=== PATIENT | female | born 1995 | race Caucasian/White ===

== ENCOUNTER → 2019-10-01 09:43 | Outpatient (CLI) | payer OTHER, SELFPAY ==
[2019-10-03 03:36] LABS: COVID19 Sendout Not Detected (Not Detected)
== END ==
PROVIDERS: Visit Provider Physician Assistant
DX: Z01.818 Encounter for other preprocedural examination (principal)
CPT/HCPCS: 87635

== ENCOUNTER 2019-10-04 10:15 | Day surgery (SDC) | payer OTHER, SELFPAY ==
[2019-10-04] VITALS (7 sets, daily range): BP systolic 107–119; BP diastolic 57–80; PULSE 91–100; RESP 14–20; TEMP 36.1–36.8; O2SAT 98–100; BMI 21.9
--- NOTE | 2019-10-04 | PATH_ITS ---
[facility] Accession Number: [id number] . 01 Material submitted: . cecum - CECUM . 01 Clinical history: . A: CECUM, R/O IBD . 02 Diagnosis: Cecum, Biopsy: Mildly active colitis. Please see comment. Negative for granulomas, dysplasia and malignancy. MRV 10/06/2019 1009 Local . 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 There is mildly increased lymphocytes, plasma cells and eosinophils in the lamina propria. No obvious viral cytopathic effects or parasitic organisms are identified. The differential diagnosis includes infection, medication-related mucosal injury, trauma/prolapse and idiopathic inflammatory bowel disease. . 02 Electronically signed: . Neeru Best MD, Pathologist NPI- [id number] . 01 Gross description: . CECUM: Received in formalin are 2 fragment(s) of walker, soft tissue measuring 0.3 x 0.2 x 0.2 cm to 0.3 x 0.2 x 0.1 cm submitted entirely in 1 cassette(s) /QBJ 10/05/2019 0814 Local . 02 Pathologist provided ICD-10: R19.7 . 02 CPT . 667000 Performed at: [address] [facility] [address], [place], [place] [id number] MD Keith Aguilar MD Phone: [phone] Performed at: 02 [facility] [place] [address] [place], [place] [id number] MD Neeru Best MD Phone: [phone]
--- NOTE | 2019-10-04 10:06 | PM.HP.1 ---
History of Present Illness History of Present Illness Date Patient Seen: 10/04/19 Chief complaint: SDC Narrative: 24-year-old female who was seen at our office on 09/05/2019 due to a history of changes in bowel habit. Please refer to that note for further details. She has had no new alarm symptoms since that office visit. Meds Home Medications and Allergies Home Medications Medication Instructions Recorded Confirmed Type docusate sodium [Colace] 100 mg PO DAILY 10/04/19 10/04/19 History escitalopram oxalate 5 mg PO DAILY 10/04/19 10/04/19 History Allergies Allergy/AdvReac Type Severity Reaction Status Date / Time Sulfa (Sulfonamide Allergy Mild Rash Verified 10/04/19 10:58 Antibiotics) Exam Narrative Exam Narrative: General: Patient is well developed, not in apparent distress Cardiovascular: Regular rate and rhythm, no murmurs, rubs, or gallops; no evidence of edema; no palpable abdominal aortic aneurysm Gastrointestinal: Normoactive bowel sounds, soft, nontender, nondistended, no rebound tenderness, no hepatosplenomegaly, no evidence of hernia Assessment & Plan Assessment & Plan narrative: 24-year-old female who is here for further evaluation of changes in bowel habits by means of of colonoscopy Regarding the procedure(s), the risks and potential complications, benefits, and alternatives (including not doing the procedure) were discussed with the patient. The risks include but are not limited to bleeding, splenic injury, infection, perforation which may require surgical intervention, missed lesions, and adverse reactions to sedative medicines. After a question and answer period, the patient agreed to proceed with the procedure(s) and gives informed consent.
[2019-10-04] MEDS: SODIUM CHLORIDE 0.9% 1,000 ML 70 ML IV (10:59)
--- NOTE | 2019-10-04 11:40 | PM.OP.ENDO ---
Operative Date/Time/Diagnoses Date of procedure: 10/04/19 Procedure Notes Procedure in detail: Surgeon: Gen Nick MD Procedure: Colonoscopy with biopsy Preoperative diagnosis: Change in bowel habits Postoperative diagnosis: Cecal erythema around appendiceal orifice status post biopsy Medications: Conscious sedation using 10 mg IV of Midazolam and 200 mcg IV of Fentanyl Preanesthesia Assessment An H and P was performed/updated and the Px?s ASA class is 1. The procedure was discussed in detail with the patient. The potential risks and complications including infection, bleeding, missed lesions, perforation, need for surgery in case of perforation, prolonged hospital stay, and were explained. A brief question and answer period was allotted and once all questions were answered, informed consent was obtained. The patient was brought back to the procedure room and placed on standard monitoring. The patient?s vital signs were monitored continuously throughout the entire procedure. Prior to starting, a timeout was performed to confirm the patient?s identity, allergies, medications, and procedure. Procedure in detail The patient was placed in left lateral decubitus position and once adequate sedation was obtained a ZACH was performed. The digital rectal examination did not reveal any palpable lesions. The tip of the colonoscope was placed in the anal canal and advanced without difficulty all the way to the cecum which was identified by the appendiceal orifice and the ileocecal valve. The terminal ileum was intubated to a distance of 10 cm from the ileocecal valve. The mucosa appeared normal throughout the visualized terminal ileum. The colonoscope was brought back to the cecum and careful examination of all jett of the colon was performed with irrigation of any residual stool. Around the appendiceal orifice there was note of mild erythema. Biopsies were taken of this area with minimal bleeding The remainder of the colonic mucosa appeared normal with no evidence of polyps or other lesions. Retroflexion was performed in the rectum and was normal. The patient tolerated the procedure well and will be brought back to the recovery area to be discharged once criteria are met. The prep was judged to be good and adequate to identify polyps less than 5 mm. The withdrawal time was 7 minutes. The total physician intraservice time was 18 minutes. Complications There were no complications and estimated blood loss was minimal. Recommendations: Resume previous diet Follow up pathology results Recommendations for repeat colonoscopy will be made once biopsy results are reviewed Call our office ([facility]) to schedule follow-up with Olga Lidia Blakely at the next available the An emergency contact number was given to the patient for any complications related to the procedure
[2019-10-04] MEDS: MIDAZOLAM 5 MG/5 ML VIAL IV (11:51)
[2019-10-04] MEDS: fentaNYL 250 MCG/5 ML INJ IV (11:51)
--- NOTE | 2019-10-04 12:32 | PM.HP.1 ---
History of Present Illness History of Present Illness [place] [facility] [place]arrative: 24-year-old female who was seen at our office on 09/05/2019 due to a history of changes in bowel habit. Please refer to that note for further details. She has had no new alarm symptoms since that office visit. Patient History Family & Social History Social History: household members spouse Tobacco & Substance use: Smoking Status Never smoker alcohol intake frequency holiday/special occasion Substance Use Type does not use Meds Home Medications and Allergies Home Medications Medication Instructions Recorded Confirmed Type docusate sodium [Colace] 100 mg PO DAILY 10/04/19 10/04/19 History escitalopram oxalate 5 mg PO DAILY 10/04/19 10/04/19 History Allergies Allergy/AdvReac Type Severity Reaction Status Date / Time Sulfa (Sulfonamide Allergy Mild Rash Verified 10/04/19 10:58 Antibiotics) Exam Vital Signs (past 8 hours): - 10/04/19 10:51 10/04/19 12:05 10/04/19 12:10 Temperature 98.1 F 97.8 F Pulse Rate 100 H 100 H 98 H Respiratory Rate 20 14 15 Blood Pressure 119/80 107/57 L 110/60 Pulse Oximetry 98 99 99 10/04/19 12:14 10/04/19 12:20 10/04/19 12:23 Temperature 97.8 F 98.2 F Pulse Rate 100 H 93 H 94 H Respiratory Rate 14 16 15 Blood Pressure 107/57 L 116/74 116/72 Pulse Oximetry 99 100 100 Oxygen Delivery Method Room Air
== END 2019-10-04 13:00 | disposition home or self-care (01) ==
PROVIDERS: Referring Provider Internal Medicine Gastroenterology; Visit Provider Internal Medicine Gastroenterology
PROC: 0DJD8ZZ Inspection of Lower Intestinal Tract, Via Natural or Artificial Opening Endoscopic (ICD-10-PCS; CPT 45378; principal; 2019-10-04 11:30)
DX: K52.9 Noninfective gastroenteritis and colitis, unspecified (principal)
CPT/HCPCS: 45380; J2250; J3010

== ENCOUNTER 2020-06-05 12:32 | Emergency (ER) | payer OTHER, SELFPAY ==
[2020-06-05] VITALS (11 sets, daily range): BP systolic 109–135; BP diastolic 56–78; PULSE 87–122; RESP 13–30; TEMP 36.7; O2SAT 95–100; BMI 21.5
--- NOTE | 2020-06-05 12:45 | DI.RAD.S_ITS ---
PROCEDURE: XR CHEST 1V INDICATIONS: syncope palpitations TECHNIQUE: One view of the chest was acquired. COMPARISON: None. FINDINGS: Surgical changes and devices: None. Lungs and pleura: Lungs are clear. No pleural effusions or pneumothorax. Mediastinum: Mediastinal contours appear normal. Heart size is normal. Bones and chest wall: No suspicious bony lesions. Overlying soft tissues appear unremarkable. IMPRESSION: Normal for age, source of current syncopal symptoms is not seen. Dictated by: Travis Mak M.D. on 06/05/2020 at 13:16 Approved by: Travis Mak M.D. on 06/05/2020 at 13:16
--- NOTE | 2020-06-05 12:51 | ED.SYNCOPE ---
HPI - Syncope General Chief Complaint: Syncope Stated Complaint: Passed out while screening patients Time Seen by Provider: 06/05/20 12:44 Source: patient Mode of arrival: Wheelchair Limitations: no limitations History of Present Illness HPI narrative: Patient is a 24-year-old female with no past medical history presenting after syncopal episode. 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 She states that she ate breakfast as she normally does then went on a run before work also she normally does. She says this is never happened to her before. She is starting to feel a little bit better heart rate is slightly fast 115. Denies any chest pain shortness of breath abdominal pain nausea vomiting. MD complaint: felt faint and almost passed out Related Data Home Medications Medication Instructions Recorded Confirmed docusate sodium [Colace] 100 mg PO DAILY 10/04/19 10/04/19 escitalopram oxalate 5 mg PO DAILY 10/04/19 10/04/19 Allergies Allergy/AdvReac Type Severity Reaction Status Date / Time Sulfa (Sulfonamide Allergy Mild Rash Verified 10/04/19 10:58 Antibiotics) Review of Systems Review of Systems ROS Unobtainable: All systems reviewed & are unremarkable except as noted in HPI and below ENT Ears, Nose, Mouth, and Throat: Denies vertigo and Denies dizziness Cardiovascular Cardiovascular: Denies chest pain, Reports syncope, Denies irregular heart rhythm, Reports lightheadedness, Reports palpitations, Denies dyspnea, Denies dyspnea on exertion and Denies orthopnea Respiratory Respiratory: Denies cough, Denies dyspnea, Denies dyspnea on exertion and Denies wheezing Gastrointestinal Gastrointestinal: Denies abdominal pain, Denies change in bowel habits, Denies diarrhea, Reports nausea and Reports vomiting Genitourinary Genitourinary: Denies dysuria, Denies urinary hesitancy and Denies urinary urgency Genitourinary: Denies dysuria, Denies urinary hesitancy and Denies urinary urgency Integumentary/Breasts Skin/Breast: Denies pruritus, Denies erythema, Denies rash and Denies wounds Neurologic Neurologic: Denies vertigo, Denies dizziness and Reports syncope Endocrine Endocrine: Reports palpitations Allergic/Immunologic Allergic/Immunologic: Denies wheezing Patient History Medical History Patient denies medical problems Social History household members: spouse Smoking Status: Never smoker Smoking Status: Never smoker alcohol intake frequency: holidays/special occasions only Substance Use Type: does not use Exam Initial Vital Signs Initial Vital Signs: Vital Signs Temperature 98.1 F 06/05/20 12:35 Pulse Rate 122 H 06/05/20 12:35 Respiratory Rate 30 H 06/05/20 12:35 Blood Pressure 121/78 06/05/20 12:35 Pulse Oximetry 99 06/05/20 12:35 GENERAL: Young thin 24 old female in no acute distress and in [no acute] distress. HEENT: Head atraumatic,EOMI, pupils reactive, face symmetric, [moist] mucous membranes CARDIOVASCULAR: Regular rate and rhythm without murmurs, rubs or gallops. RESPIRATORY: Breath sounds equal bilaterally, no wheezes rales or rhonchi. ABDOMEN: Soft, nontender. Normoactive bowel sounds all 4 quadrants. No guarding or rebound. EXTREMITIES: Normal range of motion, no clubbing or edema. Neurovascularly intact NEUROLOGICAL: Alert and oriented x4.Normal gait and speech. Cranial nerves II through XII grossly intact. Pizza Baker strength equal bilaterally no ataxia no sign be SKIN: Warm, dry, no laceration, no petechiae, no rashes or lesions. Scores PERC Score Age greater than or equal to 50 years: No Heart rate greater than or equal to 100 bpm: Yes Room Air O2 Sat less than 95%: No Unilateral leg swelling: No Recent trauma or surgery: No Hemoptysis: No Prior PE or DVT: No Hormone Use: Yes Total PERC Score: 2 Course Orders Ordered: ED Orders 06/05/20 12:35 EKG-12 Lead Stat 06/05/20 12:41 Complete Blood Count AUTO DIFF Stat Comprehensive Metabolic Panel Stat D Dimer Stat Troponin & CK Cardiac Panel Stat 06/05/20 12:45 XR chest 1V Stat 06/05/20 13:14 EKG-12 Lead Routine Discontinued Medications Sodium Chloride (Normal Saline 0.9%) 1,000 mls @ 1,000 mls/hr IV CONT ROSEY Last Infusion: 06/05/20 14:45 Dose: 0 mls/hr Documented by: Admin: 06/05/20 12:58 Dose: 1,000 mls/hr Documented by: ZANI Vital Signs Vital signs: Vital Signs - 8 hr 06/05/20 12:35 06/05/20 12:45 06/05/20 13:00 Temperature 98.1 F Pulse Rate 122 H 121 H 93 H Respiratory Rate 30 H 17 22 Blood Pressure 121/78 121/78 125/76 Pulse Oximetry 99 95 06/05/20 13:11 06/05/20 13:15 06/05/20 13:30 Temperature Pulse Rate 96 H 104 H 96 H Respiratory Rate 25 H 21 14 Blood Pressure 135/65 117/59 L Pulse Oximetry 100 100 100 06/05/20 13:45 06/05/20 14:00 06/05/20 14:15 Temperature Pulse Rate 99 H 102 H 100 H Respiratory Rate 15 21 20 Blood Pressure 113/60 112/56 L Pulse Oximetry 100 100 100 06/05/20 14:36 06/05/20 14:45 Temperature Pulse Rate 88 87 Respiratory Rate 14 13 Blood Pressure 112/63 109/64 Pulse Oximetry 95 100 MDM - Syncope Lab Data Attestation: I reviewed the patient's lab results. Result diagrams: 06/05/20 12:41 06/05/20 12:41 Labs: Lab Results 06/05/20 06/05/20 06/05/20 Range/Units 12:41 12:41 12:41 WBC 7.9 (4.5-11.0) X10^3/uL RBC 3.81 L (4.0-5.2) X10^6/uL Hgb 12.4 (12.0-16.0) g/dL Hct 36.4 (36-46) % MCV 95.3 (80-100) fL MCH 32.6 (26-34) PG MCHC 34.2 (30-36) % RDW 12.6 (11.6-14.8) % Plt Count 312 (150-400) X10^3/uL Neut % (Auto) 48.8 L (50-75) % Lymph % (Auto) 36.0 (25-40) % [place] % (Auto) 7.1 (3-14) % Eos % (Auto) 7.2 H (2-4) % Baso % (Auto) 0.9 (0-2) % Neut # (Auto) 3900 (6558-5246) /uL Lymph # (Auto) 2900 (8521-9552) /uL [place] # (Auto) 600 (0-900) /uL Eos # (Auto) 600 H (0-450) /uL Baso # (Auto) 100 (0-100) /uL D-Dimer < 200 (<230) ng/mL Sodium 135 L (137-145) mmol/L Potassium 3.6 (3.4-5.1) mmol/L Chloride 101 (98-107) mmol/L Carbon Dioxide 23 (22-32) mmol/L BUN 13 (7-17) mg/dL Creatinine 0.78 (0.52-1.04) mg/dL Estimated GFR > 60.0 (>60) mL/min BUN/Creatinine Ratio 16.7 (6-22) Glucose 96 (70-100) mg/dL Calcium 10.2 (8.4-10.2) mg/dL Total Bilirubin 0.4 (0.2-1.3) mg/dL AST 27 (14-36) IU/L ALT 15 (<35) IU/L Alkaline Phosphatase 145 H (38-126) U/L Total Creatine Kinase 97 (30-135) U/L CK-MB (CK-2) TNP CK-MB (CK-2) Rel Index TNP Troponin I < 0.012 (0.01-0.034) ng/mL Total Protein 8.5 H (6.3-8.2) g/dL Albumin 5.0 (3.5-5.0) g/dL Globulin 3.5 (1.7-4.1) g/dL Albumin/Globulin Ratio 1.4 (1.0-2.8) Point of Care Testing Test Results Negative Glucose POC 80 Urine Dip Bedside Urine Glucose Negative Bedside Urine Bilirubin - Negative Bedside Urine Ketone - Negative Urine Specific [place] 1.020 Bedside Urine Occult Blood - Negative Bedside Urine pH 6 Bedside Urine Protein - Negative Bedside Urine Urobilinogen - Negative Bedside Urine Nitrite - Negative Bedside Urine Leukocytes - Negative Esterase Imaging Data Chest x-ray: Radiologist's Impression: PROCEDURE: XR CHEST 1V INDICATIONS: syncope palpitations TECHNIQUE: One view of the chest was acquired. COMPARISON: None. FINDINGS: Surgical changes and devices: None. Lungs and pleura: Lungs are clear. No pleural effusions or pneumothorax. Mediastinum: Mediastinal contours appear normal. Heart size is normal. Bones and chest wall: No suspicious bony lesions. Overlying soft tissues appear unremarkable. IMPRESSION: Normal for age, source of current syncopal symptoms is not seen. Dictated by: Travis Mak M.D. on 06/05/2020 at 13:16 ECG Data Attestation: I personally reviewed and interpreted this ECG as follows: Prior ECG tracings: available for review Interpretation: Normal sinus rhythm rate 94 p.r. interval 110 QRS [address] changes MDM Narrative Medical decision making narrative: Patient does have increased heart rate into the 140s but it is clearly signs no monitor she is extremely nauseous and has vomited. No abdominal pain abdomen remains soft. D-dimer is negative low risk for PE. Unclear what exactly caused all of this but she is overall feeling better after Zofran and fluids. Discharge Plan Departure Patient Disposition: Home Clinical Impression: Near syncope Instructions: Fainting Activity Restrictions/Additional Instructions: *You have been diagnosed with near syncope *What to do: Your heart rate was noted to be quite elevated this was happening when you were nauseous. At this time here blood work is overall reassuring. You may require something called a Holter monitor which would measure your heart rate if this is something that continues to happen to you. I also recommend drinking water and having small frequent meals throughout the day. *Continue to take medications as directed *Follow up with your primary care provider in 2-3 days *Return to ER if you should have recurrent episode, chest pain palpitations dizziness [or] any new, worsening or concerning symptoms Prescriptions: No Action docusate sodium [Colace] 100 mg Capsule 100 mg PO DAILY RF: 0 escitalopram oxalate 5 mg Tablet 5 mg PO DAILY RF: 0 Stand Alone Forms: Work Release Note
[2020-06-05 12:58] LABS: Add Manual Diff / Slide Review NO; Basophils Absolute Auto 100 /uL (0-100); Basophils Percent Auto 0.9 % (0-2); Eosinophils Absolute Auto 600 /uL (0-450); Eosinophils Percent Auto 7.2 % (2-4); Hematocrit 36.4 % (36-46); Hemoglobin 12.4 g/dL (12.0-16.0); Lymphocytes Absolute Auto 2900 /uL (1100-4500); Mean Corpuscular HGB Conc 34.2 % (30-36); Mean Corpuscular Hemoglobin 32.6 PG (26-34); Mean Corpuscular Volume 95.3 fL (80-100); Monocytes Absolute Auto 600 /uL (0-900); Monocytes Percent Auto 7.1 % (3-14); Neutrophils Absolute Auto 3900 /uL (1500-7000); Neutrophils Percent Auto 48.8 % (50-75); Platelet Count 312 X10^3/uL (150-400); Red Blood Cell Count 3.81 X10^6/uL (4.0-5.2); Red Cell Distribution Width 12.6 % (11.6-14.8); White Blood Cell Count 7.9 X10^3/uL (4.5-11.0)
[2020-06-05] MEDS: SODIUM CHLORIDE 0.9% 1,000 ML 1000 ML IV (12:58)
--- NOTE | 2020-06-05 13:08 | PC.NURSE ---
Noted HR 144 on monitor. Pt had HR of 102 then suddenly went to Responded to pt room. Valsalva maneuver completed w/ success. HR now 102. Repeat EKG being obtained.
[2020-06-05 13:11] LABS: D Dimer < 200 ng/mL (<230)
[2020-06-05 13:14] LABS: Alanine Aminotransferase 15 IU/L (<35); Albumin Globulin Ratio 1.4 (1.0-2.8); Alkaline Phosphatase 145 U/L (38-126); Aspartate Aminotransferase 27 IU/L (14-36); BUN Creatinine Ratio 16.7 (6-22); Bilirubin Total 0.4 mg/dL (0.2-1.3); Blood Urea Nitrogen 13 mg/dL (7-17); Calcium 10.2 mg/dL (8.4-10.2); Carbon Dioxide 23 mmol/L (22-32); Chloride 101 mmol/L (98-107); Creatine Kinase 97 U/L (30-135); Estimated Glomerular Filt Rate > 60.0 mL/min (>60); Globulin 3.5 g/dL (1.7-4.1); Glucose 96 mg/dL (70-100); HEMOLYSIS < 15 (0-50); Potassium 3.6 mmol/L (3.4-5.1); Sodium 135 mmol/L (137-145); Total Protein 8.5 g/dL (6.3-8.2)
[2020-06-05 13:26] LABS: Troponin I < 0.012 ng/mL (0.01-0.034)
[2020-06-05] MEDS: ONDANSETRON 4 MG/2 ML INJ (13:59)
--- NOTE | 2020-06-05 14:09 | PC.NURSE ---
Feels improved. Pray/warm/dry at this time. Nausea improved. CSM fully intact. Neuro intact. Resting w/ eyes closed.
== END 2020-06-05 16:01 | disposition home or self-care (01) ==
PROVIDERS: Emergency Provider Emergency Medicine
DX: R55 Syncope and collapse (principal)
CPT/HCPCS: 36415; 71045; 80053; 81003; 81025; 82550; 84484; 85025; 85379; 93005; 96360; 96361; 99284; J2405

== ENCOUNTER → 2020-06-07 11:02 | Outpatient (CLI) | payer OTHER, SELFPAY ==
[2020-06-07] MEDS: COVID-19 VACC #1, MRNA(MOD) 100 MCG/0.5 ML VIAL IM (11:09)
== END ==
PROVIDERS: Visit Provider Internal Medicine
DX: Z23 Encounter for immunization (principal)
CPT/HCPCS: 0011A; 91301

== ENCOUNTER → 2020-07-03 17:25 | Outpatient (CLI) | payer OTHER, SELFPAY ==
[2020-07-03] MEDS: COVID-19 VACC #2, MRNA(MOD) 100 MCG/0.5 ML VIAL IM (17:32)
== END ==
PROVIDERS: Visit Provider Internal Medicine
DX: Z23 Encounter for immunization (principal)
CPT/HCPCS: 0012A; 91301

== ENCOUNTER → 2020-12-26 09:11 | Outpatient (CLI) | payer OTHER, SELFPAY ==
[2020-12-26 09:57] LABS: COVID19 -Nasal RAPID Negative (Negative)
== END ==
PROVIDERS: Visit Provider Nurse Practitioner
DX: Z20.822 Contact with and (suspected) exposure to COVID-19 (principal); R09.89 Other specified symptoms and signs involving the circulatory and respiratory systems; R11.0 Nausea; R53.83 Other fatigue
CPT/HCPCS: 87635

== ENCOUNTER → 2021-01-23 15:28 | Outpatient (CLI) | payer OTHER, SELFPAY | PROVIDERS: Referring Provider Internal Medicine; Visit Provider Internal Medicine | DX: Z23 Encounter for immunization (principal) | CPT/HCPCS: 90471; 90686 ==

== ENCOUNTER 2021-01-30 01:30 | Emergency (ER) | payer OTHER, SELFPAY ==
[2021-01-30 01:40] VITALS: BP 142/86; PULSE 121; RESP 16; TEMP 36.9; O2SAT 98; BMI 21.0
--- NOTE | 2021-01-30 01:56 | DI.US.S_ITS ---
PROCEDURE: US PELVIC COMPLETE INDICATIONS: PAIN AFTER INTERCOURSE TECHNIQUE: Real-time scanning was performed of the pelvic organs, with image documentation. Additional endovaginal scanning was necessary due to incomplete visualization of the adnexal and endometrial structures by transabdominal scanning. COMPARISON: None. FINDINGS: Uterus: Uterus is anteverted and normal in size at 8.1 x 3.4 x 4.3 cm. The myometrium is homogeneous. The endometrium measures 7 mm combined thickness. Ovaries: The right ovary measures 5.4 x 3.4 x 4.3 cm. The left ovary measures 2.7 x 1.4 x 1.6 cm. The right ovary demonstrates a 4.8 x 3.1 x 4 cm complex nonvascular cyst. The ovaries otherwise have a normal sonographic appearance. No adnexal masses are seen. Normal appearing arterial waveforms are confirmed to each ovary. Other: There is a moderate amount of free fluid seen. IMPRESSION: There is a complex 4.8 cm right ovarian cyst seen, which may be related to a hemorrhagic cyst. There is a moderate amount free fluid seen within the pelvis. If it would be clinically appropriate, a followup pelvic ultrasound could be considered in 6 weeks to assure resolution/ improvement. We strive to produce accurate, complete, and clear reports of imaging services. To assist us in improving patient care, this report was composed using standard report templates and voice recognition software. Therefore, it may contain abnormal punctuation, insertions and/or omissions. Occasional wrong-word or sound-alike substitutions may occur. Though we review the report and make efforts to correct it, we do recommend that the report be read carefully in proper context to recognize any text inaccuracies. Dictated by: Soto Cordoba M.D. on 01/30/2021 at 8:11 Approved by: Soto Cordoba M.D. on 01/30/2021 at 8:15
[2021-01-30] MEDS: KETOROLAC 30 MG/ML VIAL IM (02:06)
--- NOTE | 2021-01-30 02:21 | ED_ITS ---
HPI - Female Genitourinary General Chief complaint: Urogenital-Female Stated complaint: pelvic pain x2 hours Time Seen by Provider: 01/30/21 01:48 Source: patient and family Mode of arrival: Ambulatory Limitations: no limitations History of Present Illness HPI Narrative: Patient is a 25-year-old female with history of IBS presenting his exam was severe pain head pelvic and vaginal pain after intercourse. She said this happened to her 2 weeks before but it went away at this time it is very intense and not going away. She initially thought it might be her IBS he typically has pain left lower quadrant with the IBS however this 1 is suprapubic in feels like it is in her vagina. She was interviewed alone and said this was consensual intercourse with her without any foreign objects. She took IBS med ications to help with pain but it has not. She denies any abnormal vaginal bleeding or discharge. He denies any nausea or vomiting it hurts every time she moves. It is nonradiating. No known history of ovarian cysts. Related Data Home Medications Medication Instructions Recorded Confirmed docusate sodium 100 mg capsule 100 mg PO DAILY 10/04/19 10/04/19 (Colace) escitalopram oxalate 5 mg tablet 5 mg PO DAILY 10/04/19 10/04/19 Previous Rx's Medication Instructions Recorded hydrocodone 5 mg-acetaminophen 325 1 tab PO Q6H PRN #10 tab 01/30/21 mg tablet Allergies Allergy/AdvReac Type Severity Reaction Status Date / Time Sulfa (Sulfonamide Allergy Mild Rash Verified 10/04/19 10:58 Antibiotics) Review of Systems Review of Systems Narrative: GENERAL: Denies chills, fatigue, malaise, fever, sweats, travel HEENT: Denies sinus pain, ear pain, sore throat, difficulty swallowing, neck pain RESPIRATORY: Denies dyspnea, cough, wheezing, hemoptysis, sputum. CARDIOVASCULAR: Denies chest pain, palpitations, orthopnea, edema GASTROINTESTINAL: See HPI : Denies dysuria, frequency, incontinence, hematuria, urinary retention, flank pain. MUSCULOSKELETAL: Denies weakness, joint pain, or bony pain SKIN: No rash, no erythema, no pruritus NEUROLOGIC: Denies weakness, dizziness, headache, numbness, change in speech, confusion PSYCHIATRIC: No concerning psychosocial issues. 12 point review of systems is negative except for those stated above and HPI Patient History Medical History Patient denies medical problems alcohol intake frequency: holidays/special occasions only Substance Use Type: does not use Exam Initial Vital Signs Initial Vital Signs: Vital Signs Temperature 98.5 F 01/30/21 01:40 Pulse Rate 121 H 01/30/21 01:40 Respiratory Rate 16 01/30/21 01:40 Blood Pressure 142/86 H 01/30/21 01:40 Pulse Oximetry 98 01/30/21 01:40 GENERAL: Alert young 25-year-old female appears in pain HEENT: Head atraumatic,EOMI, pupils reactive, face symmetric, moist mucous membranes CARDIOVASCULAR: Regular rate and rhythm without murmurs, rubs or gallops. RESPIRATORY: Breath sounds equal bilaterally, no wheezes rales or rhonchi. ABDOMEN: Soft, very tender suprapubic area. Minimal left-sided abdominal pain is no right-sided abdominal pain. No guarding or rebound. PELVIC: External exam no sign of trauma cervix is seen and visualized exquisitely tender right adnexal area EXTREMITIES: Normal range of motion, no clubbing or edema. Neurovascularly intact NEUROLOGICAL: Alert and oriented x4.Normal gait and speech. SKIN: Warm, dry, no laceration, no petechiae, no rashes or lesions. Course Orders Ordered: ED Orders 01/30/21 01:56 US pelvic complete Stat 01/30/21 02:32 CBC Auto Diff [Complete Blood Count AUTO DIFF] Stat CMP [Comprehensive Metabolic Panel] Stat Discontinued Medications Hydrocodone Bitart/Acetaminophen (Hydrocodone/Acet 5/325 Prepack) 1 bottle MISC SEEINSTR ONE Stop: 01/30/21 04:25 Last Admin: 01/30/21 04:27 Dose: 1 bottle Documented by: LISSA Ketorolac Tromethamine (Ketorolac 30 Mg/Ml Vial) 30 mg IM NOW ONE Stop: 01/30/21 01:57 Last Admin: 01/30/21 02:06 Dose: 30 mg Documented by: LISSA Morphine Sulfate (Morphine 2 Mg/Ml Inj) 2 mg IV NOW ONE Stop: 01/30/21 02:22 Last Admin: 01/30/21 02:35 Dose: 2 mg Documented by: LISSA Vital Signs Vital signs: Vital Signs - 8 hr 11/25/21 01:40 Temperature 98.5 F Pulse Rate 121 H Respiratory Rate 16 Blood Pressure 142/86 H Pulse Oximetry 98 MDM - Female Genitourinary Lab Data Result diagrams: 01/30/21 02:32 01/30/21 02:32 Labs: Lab Results 01/30/21 01/30/21 Range/Units 02:32 02:32 WBC 15.6 H (4.5-11.0) X10^3/uL RBC 3.51 L (4.0-5.2) X10^6/uL Hgb 11.1 L (12.0-16.0) g/dL Hct 32.8 L (36-46) % MCV 93.6 (80-100) fL MCH 31.7 (26-34) PG MCHC 33.9 (30-36) % RDW 12.9 (11.6-14.8) % Plt Count 324 (150-400) X10^3/uL Neut % (Auto) 72.8 (50-75) % Lymph % (Auto) 17.9 L (25-40) % [place] % (Auto) 3.7 (3-14) % Eos % (Auto) 4.6 H (2-4) % Baso % (Auto) 1.0 (0-2) % Neut # (Auto) 88013 H (2384-4947) /uL Lymph # (Auto) 2800 (6822-2735) /uL [place] # (Auto) 600 (0-900) /uL Eos # (Auto) 700 H (0-450) /uL Baso # (Auto) 200 H (0-100) /uL Sodium 137 (137-145) mmol/L Potassium 3.7 (3.4-5.1) mmol/L Chloride 104 (98-107) mmol/L Carbon Dioxide 26 (22-32) mmol/L BUN 13 (7-17) mg/dL Creatinine 0.74 (0.52-1.04) mg/dL Estimated GFR > 60.0 (>60) mL/min BUN/Creatinine Ratio 17.6 (6-22) Glucose 101 H (70-100) mg/dL Calcium 8.9 (8.4-10.2) mg/dL Total Bilirubin 0.4 (0.2-1.3) mg/dL AST 24 (14-36) IU/L ALT 13 (<35) IU/L Alkaline Phosphatase 91 (38-126) U/L Total Protein 7.3 (6.3-8.2) g/dL Albumin 4.3 (3.5-5.0) g/dL Globulin 3.0 (1.7-4.1) g/dL Albumin/Globulin Ratio 1.4 (1.0-2.8) Point of Care Testing Test Results Negative Urine Dip Bedside Urine Glucose Negative Bedside Urine Bilirubin - Negative Bedside Urine Ketone - Negative Urine Specific [place] 1.010 Bedside Urine Occult Blood - Negative Bedside Urine pH 7.5 Bedside Urine Protein + 30 Bedside Urine Urobilinogen - Negative Bedside Urine Nitrite - Negative Bedside Urine Leukocytes - Negative Esterase Imaging Data [place] - [employer]: Radiologist's Impression: Preliminary report 4.8 cm complex right ovarian cyst close follow-up in 6-8 weeks. Moderate free fluid. MDM Narrative Medical decision making narrative: Patient is found have a large right ovarian cyst which probably ruptured during intercourse causing her pain. No evidence of trauma. She overall feels safe at home. Recommend outpatient follow-up. Her pain significantly better after morphine and Toradol. Blood work does show some mild elevated leukocytosis probable stress reaction rather than infection. Discharge Plan Departure Patient Disposition: Home Clinical Impression: Ovarian cyst Instructions: DI for Ovarian Cyst Activity Restrictions/Additional Instructions: *You have been diagnosed with ovarian cyst *What to do: At this time your pain is likely from ovarian cyst. You have some fluid which is likely causing irritation. I recommend repeat ultrasound in about 6 weeks. *Continue to take medications as directed Ibuprofen 100 mg a rate 8 hours if needed for dldw-tx-asiatqpt pain [place] 1 tablet every 6 hours if needed for severe pain *Follow up with your primary care provider in 2-3 days *Return to ER if you should have increasing pain, vaginal bleeding, vaginal discharge, fevers or any new, worsening or concerning symptoms CONTROLLED SUBSTANCE DISCHARGE (Narcotoic/benzodiazepine/Flexeril/Phenergan) 1. You have been prescribed narcotic medications, it does have aceta minophen/Tylenol/paracetamol in it, DO NOT TAKE MORE THAN 4,00mg in 24 hours of Tylenol. TRAMADOL DOES NOT CONTAIN TYLENOL 2. Please understand that we cannot provide further refills of narcotics, benzodiazepines or controlled substances through the ED and her pain management will need to be through your provider. 3. While on these medications you cannot drive or operate heavy machinery. 4. You cannot sign legal documents or perform any duties such as this. 5. As long as you're taking opiate pain medications he should also be taking a stool softener such as Colace, Dulcolax, MiraLAX or prune juice, to help avoid constipation. Prescriptions: New hydrocodone-acetaminophen 5-325 mg tablet 1 tab PO Q6H PRN (Reason: pain) Qty: 10 0RF No Action docusate sodium [Colace] 100 mg Capsule 100 mg PO DAILY 0RF escitalopram oxalate 5 mg Tablet 5 mg PO DAILY 0RF Referrals: Miscellaneous,Doctor, MD [Primary Care Provider] -
[2021-01-30] MEDS: MORPHINE 2 MG/ML INJ IV (02:35)
[2021-01-30 02:50] LABS: Alanine Aminotransferase 13 IU/L (<35); Albumin 4.3 g/dL (3.5-5.0); Albumin Globulin Ratio 1.4 (1.0-2.8); Alkaline Phosphatase 91 U/L (38-126); Aspartate Aminotransferase 24 IU/L (14-36); BUN Creatinine Ratio 17.6 (6-22); Bilirubin Total 0.4 mg/dL (0.2-1.3); Blood Urea Nitrogen 13 mg/dL (7-17); Calcium 8.9 mg/dL (8.4-10.2); Carbon Dioxide 26 mmol/L (22-32); Chloride 104 mmol/L (98-107); Estimated Glomerular Filt Rate > 60.0 mL/min (>60); Glucose 101 mg/dL (70-100); HEMOLYSIS 26 (0-50); Potassium 3.7 mmol/L (3.4-5.1); Sodium 137 mmol/L (137-145); Total Protein 7.3 g/dL (6.3-8.2)
[2021-01-30 02:55] LABS: Add Manual Diff / Slide Review NO; Basophils Absolute Auto 200 /uL (0-100); Eosinophils Absolute Auto 700 /uL (0-450); Eosinophils Percent Auto 4.6 % (2-4); Hematocrit 32.8 % (36-46); Hemoglobin 11.1 g/dL (12.0-16.0); Lymphocytes Absolute Auto 2800 /uL (1100-4500); Lymphocytes Percent Auto 17.9 % (25-40); Mean Corpuscular HGB Conc 33.9 % (30-36); Mean Corpuscular Hemoglobin 31.7 PG (26-34); Mean Corpuscular Volume 93.6 fL (80-100); Monocytes Absolute Auto 600 /uL (0-900); Monocytes Percent Auto 3.7 % (3-14); Neutrophils Absolute Auto 11400 /uL (1500-7000); Neutrophils Percent Auto 72.8 % (50-75); Platelet Count 324 X10^3/uL (150-400); Red Blood Cell Count 3.51 X10^6/uL (4.0-5.2); Red Cell Distribution Width 12.9 % (11.6-14.8); White Blood Cell Count 15.6 X10^3/uL (4.5-11.0)
[2021-01-30] MEDS: HYDROCODONE/ACET 5/325 PREPACK 1 BOTTLE MISC (04:27)
[2021-01-30 04:36] VITALS: BP 142/86; PULSE 108; RESP 18; O2SAT 100
== END 2021-01-30 04:36 | disposition home or self-care (01) ==
PROVIDERS: Emergency Provider Emergency Medicine
DX: N83.201 Unspecified ovarian cyst, right side (principal)
CPT/HCPCS: 36415; 76830; 76856; 80053; 81003; 81025; 85025; 96372; 96374; 99284; J1885; J2270

== ENCOUNTER 2021-04-22 12:51 | Emergency (ER) | payer OTHER, SELFPAY ==
[2021-04-22] VITALS (7 sets, daily range): BP systolic 112–128; BP diastolic 59–90; PULSE 98–150; RESP 15–47; TEMP 36.2; O2SAT 98–100; BMI 21.0
--- NOTE | 2021-04-22 12:59 | ED.ALLEREA ---
HPI - Allergic Reaction <Jose E Hannah PA-C - Last Filed: 04/22/21 14:06> General Chief complaint: Allergic Reaction Stated complaint: anaphilaxis Time Seen by Provider: 04/22/21 12:56 Source: patient and EMS Mode of arrival: EMS History of Present Illness HPI narrative: Patient is a 25-year-old female who presents to the ED via EMS for anaphylactic reaction. EMS reports that she was exposed to all meds which she is known is an allergy of hers her however she has not had his bad reaction in the past. Patient is complaining of scratchy throat with dysphagia and dysphasia. EMS gave the patient 50 mg of Benadryl IV 0.3 mg epinephrine SQ and albuterol breathing treatment. Patient had some associated tachycardia and was shivering upon entering the ED patient has had some associated nausea no reported vomiting she continues to have difficulty swallowing difficulty breathing. No reported past medical history no reported fevers no other known exposures no headaches visual disturbances chest pain diarrhea. 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 Related Data Home Medications Medication Instructions Recorded Confirmed docusate sodium 100 mg capsule 100 mg PO DAILY 10/04/19 10/04/19 (Colace) escitalopram oxalate 5 mg tablet 5 mg PO DAILY 10/04/19 10/04/19 Previous Rx's Medication Instructions Recorded hydrocodone 5 mg-acetaminophen 325 1 tab PO Q6H PRN #10 tab 01/30/ mg tablet epinephrine 0.3 mg/0.3 mL 0.3 mg (0.3 mL) IM Q5-15M PRN #2 ea 04/22/21 injection, auto-injector (EpiPen 2-Andrea) Allergies Allergy/AdvReac Type Severity Reaction Status Date / Time almond Allergy Severe Anaphylaxis Verified 04/22/21 12:57 Sulfa (Sulfonamide Allergy Mild Rash Verified 10/04/19 10:58 Antibiotics) Review of Systems <Jose E Hannah PA-C - Last Filed: 04/22/21 14:06> Review of Systems ROS Unobtainable: All systems reviewed & are unremarkable except as noted in HPI and below Constitutional Constitutional: Reports as per HPI, Denies chills, Denies fatigue, Denies fever(s), Denies frequent falls, Denies lethargy and Denies weakness Eyes Eyes: Denies change in vision, Denies eye discharge, Denies irritation and Denies loss of vision ENT Ears, Nose, Mouth, and Throat: Reports change in voice, Reports dysphagia, Denies dizziness, Denies neck pain, Denies sore throat and Denies throat swelling Cardiovascular Cardiovascular: Denies chest pain, Denies irregular heart rhythm, Denies lightheadedness, Denies palpitations, Reports dyspnea, Denies dyspnea on exertion and Denies orthopnea Respiratory Respiratory: Reports cough, Reports dyspnea, Denies dyspnea on exertion and Denies wheezing Gastrointestinal Gastrointestinal: Denies abdominal pain, Denies change in bowel habits, Reports dysphagia, Denies diarrhea, Reports nausea and Denies vomiting Genitourinary Genitourinary: Denies hematuria, Denies flank pain, Denies urinary incontinence and Denies urinary urgency Musculoskeletal Musculoskeletal: Denies back pain, Denies muscle weakness, Denies neck pain, Denies numbness and Denies tingling Integumentary/Breasts Skin/Breast: Denies pruritus, Denies erythema, Denies rash and Denies wounds Neurologic Neurologic: Denies behavioral changes, Denies confusion, Denies dizziness, Denies frequent falls, Denies loss of vision, Denies numbness, Denies tingling and Denies weakness Psychiatric Psychiatric: Denies anxiety, Denies behavioral changes, Denies confusion, Denies depression, Denies homicidal ideation and Denies suicidal ideation Endocrine Endocrine: Denies fatigue, Denies flushing and Denies palpitations Hematologic/Lymphatic Hematologic/Lymphatic: Denies easy bruising Allergic/Immunologic Allergic/Immunologic: Denies urticaria, Denies throat swelling and Denies wheezing Patient History <Jose E Hannah PA-C - Last Filed: 04/22/21 14:06> Medical History Patient denies medical problems Social History household members: spouse Smoking Status: Never smoker Smoking Status: Never smoker alcohol intake frequency: holidays/special occasions only Substance Use Type: does not use Exam <Jose E Hannah PA-C - Last Filed: 04/22/21 14:06> Initial Vital Signs Initial Vital Signs: Vital Signs Temperature 97.1 F L 04/22/21 12:51 Pulse Rate 150 H 04/22/21 12:51 Respiratory Rate 28 H 04/22/21 12:51 Blood Pressure 126/90 04/22/21 12:51 Pulse Oximetry 100 04/22/21 12:51 Const General: acute distress and anxious Nutritional Appearance: average body habitus and well nourished Orientation: Orientation [facility] Head: normal to inspection Ears: hearing grossly normal bilaterally and external ears normal Nose: external nose normal, nares normal and nasal mucous membranes and turbinates normal Face and sinus: normal facial exam Mouth: oral mucosae normal, lip normal, tongue normal, salivary ducts normal, oropharynx normal and moist mucous membranes Teeth and gingiva: dentition normal Throat: posterior oropharynx normal, tonsils normal and uvula midline Eyes General: appearance normal, both eyes and all related structures Pupils: PERRL Neck Neck: normal visual inspection and full ROM Resp Effort & Inspection: respiratory distress and tachypneic Auscultation: clear to auscultation bilaterally Cardio Palpation: normal PMI Rate: regular rate Rhythm: regular rhythm Heart Sounds: S1 normal and S2 normal GI Inspection: normal to inspection Palpation: soft Percussion: normal to percussion Skin General: no rashes or lesions noted Neuro General: patient alert, patient awake and patient oriented x3 Psych Appearance: grossly normal Mental Status: mental status grossly normal Speech and Movement: speech and movement normal Mood: anxious mood <Guy Collado DO - Last Filed: 04/23/21 07:34> Initial Vital Signs Initial Vital Signs: Vital Signs Temperature 97.1 F L 04/22/21 12:51 Pulse Rate 150 H 04/22/21 12:51 Respiratory Rate 28 H 04/22/21 12:51 Blood Pressure 126/90 04/22/21 12:51 Pulse Oximetry 100 04/22/21 12:51 Course <Jose E Hannah PA-C - Last Filed: 04/22/21 14:06> Orders Ordered: Discontinued Medications Famotidine (Famotidine 20 Mg/2 Ml Vial) 20 mg IV NOW ROSEY Last Admin: 04/22/21 13:05 Dose: 20 mg Documented by: ZAIN Ondansetron HCl (Ondansetron 4 Mg/2 Ml Inj) 4 mg IV NOW ONE Stop: 04/22/21 12:58 Last Admin: 04/22/21 13:05 Dose: 4 mg Documented by: ZAIN Reevaluation(s) Reevaluation #1: Patient reporting feeling much better no reported shortness of breath no dysphagia or cough or nausea symptoms have resolved patient stable Vital Signs Vital signs: Vital Signs - 8 hr 04/22/21 12:51 04/22/21 12:58 04/22/21 13:00 Temperature 97.1 F L Pulse Rate 150 H 137 H 132 H Respiratory Rate 28 H 36 H 47 H Blood Pressure 126/90 126/61 Pulse Oximetry 100 100 100 04/22/21 13:15 04/22/21 13:30 04/22/21 13:45 Temperature Pulse Rate 122 H 112 H 122 H Respiratory Rate 28 H 15 18 Blood Pressure 128/60 121/60 122/59 L Pulse Oximetry 100 98 99 <Guy Collado DO - Last Filed: 04/23/21 07:34> Orders Ordered: Discontinued Medications Famotidine (Famotidine 20 Mg/2 Ml Vial) 20 mg IV NOW ROSEY Last Admin: 04/22/21 13:05 Dose: 20 mg Documented by: ZAIN Ondansetron HCl (Ondansetron 4 Mg/2 Ml Inj) 4 mg IV NOW ONE Stop: 04/22/21 12:58 Last Admin: 04/22/21 13:05 Dose: 4 mg Documented by: ZAIN Vital Signs Vital signs: Vital Signs - 8 hr 04/22/21 12:51 04/22/21 12:58 04/22/21 13:00 Temperature 97.1 F L Pulse Rate 150 H 137 H 132 H Respiratory Rate 28 H 36 H 47 H Blood Pressure 126/90 126/61 Pulse Oximetry 100 100 100 04/22/21 13:15 04/22/21 13:30 04/22/21 13:45 Temperature Pulse Rate 122 H 112 H 122 H Respiratory Rate 28 H 15 18 Blood Pressure 128/60 121/60 122/59 L Pulse Oximetry 100 98 99 MDM - Allergic Reaction <Jose E Hannah PA-C - Last Filed: 04/22/21 14:06> Differential Diagnosis Differential diagnosis: Likely anaphylaxis and allergic reaction MDM Narrative Medical decision making narrative: Patient was evaluated for anaphylactic reaction secondary to almonds. Patient was treated with antihistamines epinephrine breathing treatments and supportive care. Patient responded well was monitored with no [place] rebound or recurrent anaphylaxis changes patient remained stable vital signs remained stable patient is comfortable going home which I am agreeable I will E scribed an EpiPen to her pharmacy and I discussed the benefits of utilizing the EpiPen 0. Discharge Plan Departure Patient Disposition: Home Clinical Impression: Anaphylaxis, Allergic reaction Activity Restrictions/Additional Instructions: You were treated for anaphylaxis today in the emergency room it would appear that you are allergic to almonds and is important that you communicate this allergy to any healthcare providers or anywhere that handles food to avoid this again. I sent an EpiPen to your pharmacy of choice that I would recommend you keep close by for when you needed. I would also recommend that you notify your primary care doctor in follow-up so that they are aware of this reaction. If he continued to have issues or notice a rash you can continue to take Benadryl OTC as directed or you can return to the emergency room if you have return of symptoms or feel worse. Prescriptions: New epinephrine [EpiPen 2-Andrea] 0.3 mg/0.3 mL auto-injector 0.3 mg IM Q5-15M PRN (Reason: anaphylaxis) Qty: 2 0RF Rx Instructions: do not exceed 3 doses per episode No Action docusate sodium [Colace] 100 mg Capsule 100 mg PO DAILY 0RF escitalopram oxalate 5 mg Tablet 5 mg PO DAILY 0RF hydrocodone-acetaminophen 5-325 mg tablet 1 tab PO Q6H PRN (Reason: pain) Qty: 10 0RF Referrals: Miscellaneous,Doctor, [Primary Care Provider] - <Guy Collado DO - Last Filed: 04/23/21 07:34> [facility] I was immediately available in the department for consultation. This documentation has been reviewed and I agree with assessment and plan. Supervised by Guy Collado DO
[2021-04-22] MEDS: FAMOTIDINE 20 MG/2 ML VIAL IV (13:05)
[2021-04-22] MEDS: ONDANSETRON 4 MG/2 ML INJ IV (13:05)
== END 2021-04-22 14:13 | disposition home or self-care (01) ==
PROVIDERS: Emergency Provider Physician Assistant
DX: T78.05XA Anaphylactic reaction due to tree nuts and seeds, initial encounter (principal); R11.0 Nausea
CPT/HCPCS: 96374; 96375; 99283; 99284; J2405